=== PATIENT | male | born 1995 | race Caucasian/White ===

== ENCOUNTER → 2019-04-25 07:09 | Outpatient (CLI) | payer BC, SELFPAY ==
--- NOTE | 2019-04-25 07:45 | MRI_ITS ---
STUDY: MRI BRAIN WITHOUT CONTRAST REASON FOR EXAM: Male, 23 years old. Epilepsy, Dalila 1, follow-up TECHNIQUE: Standardized multiplanar fat and water weighted pulse sequences were obtained. COMPARISON: 26 April 2018 FINDINGS: Appearance is stable since prior. There are no focal parenchymal lesions, acute infarct, mass effect or midline shift. Ventricular size is normal. There is mild asymmetric cerebellar tonsillar ectopia. The right tonsil is located 5 mm below the foramen magnum. Left tonsil is located 4 mm below the foramen magnum. Right tonsil is triangularly shaped, right is rounded and normal. Prepontine cistern is mildly flattened. There is near normal ventral flow of CSF anterior to the benjamin, medulla and cervical spinal cord. There is diminished flow in the posterior retroareolar medullary cistern. However, there is no crowding in the foramen magnum. There is mild descent of the frontal lobe with diminished distance to the optic nerves. MRI/Brain without Contrast IMPRESSION: 1. No change since prior. 2. Bilateral cerebellar tonsillar ectopia. This can be seen with borderline Chiari cases versus related to intracranial hypertension and/or dural venous sinus thrombosis. Ophthalmology referral and dedicated imaging or advised. Electronically Signed: Vivi Au, at 17:33 EST Tel , Service support ,
== END ==
PROVIDERS: PCP Internal Medicine; Referring Provider Psychiatry & Neurology Neurology; Visit Provider Psychiatry & Neurology Neurology
DX: G40.309 Generalized idiopathic epilepsy and epileptic syndromes, not intractable, without status epilepticus (principal); G40.B09 Juvenile myoclonic epilepsy, not intractable, without status epilepticus; G93.5 Compression of brain
CPT/HCPCS: 70551

== ENCOUNTER → 2020-09-02 06:06 | Outpatient (CLI) | payer BC, SELFPAY ==
[2020-09-02 06:22] LABS: Hematocrit 49.3 % (40-54); Hemoglobin 16.7 g/dL (13.0-16.5); Mean Corp Hgb Conc 33.9 g/dL (32-36); Mean Corpuscular Hgb 28.3 pg (27.0-32.0); Mean Corpuscular Volume 83.4 fL (80-94); Mean Platelet Vol. 9.4 fl (6.2-12.0); Platelet Count 231 K/mm3 (150-450); RBC Distribution Width CV 11.9 % (11.6-14.6); RBC Distribution Width SD 35.5 fl (35.1-43.9); Red Blood Count 5.91 M/mm3 (4.6-6.2); White Blood Count 6.9 K/mm3 (4.4-11.0)
[2020-09-02 06:44] LABS: ALB/GLOB Ratio 1.3 RATIO (0.9-2.4); AST(SGOT) 17 U/L (15-37); Alanine Aminotransfer ALT/SGPT 34 U/L (16-61); Albumin, Serum 4.1 g/dL (3.2-5.0); Alkaline Phosphatase 105 U/L (45-117); Anion Gap 6 (5-15); BUN 19 mg/dL (7-18); BUN/Creat Ratio 19.4 RATIO (10-20); Calcium,Total 9.1 mg/dL (8.5-10.1); Chloride 103 mmol/L (98-107); Creatinine, Serum 0.98 mg/dL (0.70-1.30); EST Glomerular Filtration Rate 100 mL/min (>60); Est Glom Filt Rate - Afr Amer 121 mL/min (>60); Globulin 3.1 g/dL (2.2-4.2); Glucose 112 mg/dL (74-106); Potassium 3.9 mmol/L (3.5-5.1); Protein, Total 7.2 g/dL (6.4-8.2); Sodium Level 139 mmol/L (136-145)
[2020-09-05 12:40] LABS: KEPPRA (LEVETIRACETAM) 12.5 ug/mL (10.0-40.0)
== END ==
LOC: LAB 06:08
PROVIDERS: PCP Internal Medicine; Referring Provider Nurse Practitioner Family; Visit Provider Nurse Practitioner Family
DX: G40.309 Generalized idiopathic epilepsy and epileptic syndromes, not intractable, without status epilepticus (principal)
CPT/HCPCS: 36415; 80053; 80177; 82140; 85027

== ENCOUNTER 2021-04-22 16:56 | Outpatient (CLI) | payer BC, SELFPAY ==
--- NOTE | 2021-04-22 16:57 | MRI_ITS ---
EXAM: MR HEAD WITHOUT AND WITH INTRAVENOUS CONTRAST CLINICAL INDICATION: Chiari I malformation monitoring TECHNIQUE: Multiplanar and multisequence MR images of the brain were obtained without and with intravenous contrast. This report was created using [employer] report [employer] technology. CONTRAST: IV 17ML DOTAREM COMPARISON: Apr 25 2019 7:50am FINDINGS: BRAIN AND EXTRA-AXIAL SPACES: Bilateral cerebellar tonsillar ectopia is unchanged and the findings are suggestive of Chiari One. No intra- or extra-axial hemorrhage. No evidence of acute infarct. No intracranial mass or mass effect. There is preservation of the liu/white matter interface. Ventricles are appropriate for age. No hydrocephalus. Basal cisterns are patent. SELLA: Unremarkable. Normal sella turcica, pituitary gland, infundibular stalk, optic chiasm and hypothalamus. AUDITORY SYSTEM: Unremarkable. The internal auditory canals are patent. BONES/JOINTS: Unremarkable. No discrete lytic or blastic abnormalities. SINUSES: Unremarkable as visualized. Clear. MASTOID AIR CELLS: Unremarkable as visualized. Clear. ORBITS: Unremarkable as visualized. Both globes, extraocular muscles, optic nerves and retrobulbar fat appear unremarkable. VASCULATURE: Unremarkable as visualized. Normal flow voids in the major intracranial circulation. MRI/Brain W/WO Contrast IMPRESSION: Bilateral cerebellar tonsillar ectopia is unchanged and the findings are suggestive of Chiari One. Electronically Signed: Malik Handley MD at 18:47 EST ,
== END 2021-04-22 23:59 | disposition home or self-care (01) ==
LOC: MRI 16:57
PROVIDERS: PCP Internal Medicine; Visit Provider Nurse Practitioner Family
DX: G93.5 Compression of brain (principal); G40.309 Generalized idiopathic epilepsy and epileptic syndromes, not intractable, without status epilepticus; G43.901 Migraine, unspecified, not intractable, with status migrainosus
CPT/HCPCS: 70553; A9575

== ENCOUNTER → 2023-04-29 | Outpatient (CLI) | payer BC, SELFPAY ==
--- OUTSIDE RECORDS SUMMARY | 2023-04-29 20:03 | XMS RPT_ITS | CCD ---
Author Name Unknown Address [address] [facility] [address] [place] [id number] Organization [facility] Care Team Providers Care Environmental Journalist Name Role Phone Carlos Lindo Admitting Unavailable Carlos Lindo Attending Unavailable Unavailable Primary Care Provider Unavaildot e Daniela Kay Primary Care Provider [phone] Daniela Kay Primary Care Provider Medications Current Medications Medication Drug Class(es) Dates Sig (Normalized) Sig (Original) levETIRAcetam 500 mg oral tablet (10 sources) Start: 06-14-2018 End: 04-05-2020 take 1 tablet by mouth twice daily levETIRAcetam 500 MG tablet Indications: Generalized epilepsy , 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 Other nervous system disorders (1 source) Chiari malformation type I; Translations: [Chiari malformation type I] Chronic Past or Other Problems Problem Classification Problem Date Documented Da te Episodic/Chronic Epilepsy; convulsions (4 sources) Seizure; Translations: [New onset seizure] Onset: 05-05-2018 11-07-2018 Episodic Results Test Name Value Interpretation Reference Range Facil ity Vital Signs Date Time Vital Sign Value Performing Clinician Jennifer brown 04-11-2019 07:55-0500 BMI (Body Mass Index) 27.15 kg/m2 Dwight Romero [facility] 04-11-2019 07:55-0500 Body weight 86.46 kg [facility] 04-11-2019 07:55-0500 BP Diastolic 62 mm[Hg] [facility] 04-11-2019 07:55-0500 BP Systolic 118 mm[Hg] [facility] 04-11-2019 07:55-0500 Height 178.4 cm [facility] 04-11-2019 07:55-0500 Pulse (Heart Rate) 60 /min [facility] 04-11-2019 07:55-0500 Respiratory Rate 16 /min [facility] 10-11-2018 08:35-0400 BMI (Body Mass Index) 28.52 kg/m2 [facility] 10-11-2018 08:35-0400 Body weight 90.81 kg [facility] 10-11-2018 08:35-0400 BP Diastolic 70 mm[Hg] [facility] 10-11-2018 08:35-0400 BP Systolic 106 mm[Hg] [facility] 10-11-2018 08:35-0400 Height 178.4 cm [facility] 10-11-2018 08:35-0400 Pulse (Heart Rate) 80 /min [facility] 10-11-2018 08:35-0400 Respiratory Rate 20 /min [facility] 07-12-2018 08:11-0400 BMI (Body Mass Index) 28.52 kg/m2 [facility] 07-12-2018 08:11-0400 BP Diastolic 62 mm[Hg] [facility] 07-12-2018 08:11-0400 BP Systolic 106 mm[Hg] [facility] 07-12-2018 08:11-0400 Height 178.4 cm [facility] 07-12-2018 08:11-0400 Pulse (Heart Rate) 68 /min [facility] 07-12-2018 08:11-0400 Respiratory Rate 16 /min [facility] 07-12-2018 08:11-0400 Weight 90.81 kg [facility] 05-31-2018 08:50-0400 BMI (Body Mass Index) 28.29 kg/m2 [facility] 05-31-2018 08:50-0400 BP Diastolic 92 mm[Hg] [facility] 05-31-2018 08:50-0400 BP Systolic 120 mm[Hg] Dwight [facility] 05-31-2018 08:50-0400 Height 178.4 cm [facility] 05-31-2018 08:50-0400 Pulse (Heart Rate) 80 /min [facility] 05-31-2018 08:50-0400 Respiratory Rate 16 /min [facility] 05-31-2018 08:50-0400 Weight 90.08 kg [facility] Encounters Encounter Date Encounter Type Care Provider Facility Start: 04-11-2020 End: 04-11-2020 Orders Only Idalia Joleen Jerry Work Phone: [facility] Start: 04-11-2019 End: 04-11-2019 Office outpatient visit 15 minutes Dwight Romero Work Phone: [facility] Neurology Procedures Date Procedure Procedure Detail Performing Clinician Start: 06-14-2018 Electroencephalogram Dwight Romero Work Phone: Start: 06-14-2018 Electroencephalogram extnd mntr >1 hr Dwight Romero Work Phone: Plan of Treatment Date Care Activity Detail Author Start: 04-16-2020 End: 04-16-2020 Office Visit 04/16/2020 Office Visit Neurology Dwight Romero, DO [address] [place] [address] [phone] [facility] Neurology Start: 04-11-2019 End: 04-11-2020 MRI of brain and brain stem MRI BRAIN WITHOUT CONTRAST Imaging Routine Nonintractable epilepsy without status epilepticus, unspecified epilepsy type 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 Expected: 04/11/2019, Expires: 04/11/2020 [facility] Payers Date Payer Category Payer Unknown [employer] O PPO POS xxxxxxxxxxxx 2018-Present xxxxxxxxxxxx [id number] 2016 Unknown RJ BCBS OUT OF STATE [facility] [id number] 2016-Present [id number] 1996 Unknown [id number] Unknown [id number] Social History Date Type Detail Facility Tobacco smoking status AKIS Unknown if ev er smoked [facility] Sex Assigned At Not on file [facility] Start: 05-31-2018 End: 04-11-2019 Tobacco smoking status NHIS Never smoker [facility] Start: 05-31-2018 History SDOH Alcohol Frequency 4 [facility] Start: 05-31-2018 History SDOH [facility] Start: 05-31-[address] [facility] Start: 10-11-2018 Alcohol intake Yes [facility] Start: 04-11-2019 Alcohol intake Current drinke r of alcohol (finding) [facility] Summary Purpose Family History No Family History Records FoundNo Family History Records FoundNo Family History Records FoundNo Family History Records Found Advance Directives No Advanced Directives Records FoundNo Advanced Directives Records FoundNo Advanced Directives Records FoundNo Advanced Directives Records Found Reason for Referral Status Reason Specialty Diagnoses / Procedures Referred By Contact Referred To Contact New Request Neurology Diagnoses New onset seizure Dwight Romero DO [address] [place] [address] Dwight Romero DO [address] [place] [address] Status Reason Specialty Diagnoses / Procedures Referred By Contact Referred To Contact New Request Diagnoses Seizure Procedures EEG EXTENDED >1 HOUR Dwight Romero DO [address] [place] [address] Status Reason Specialty Diagnoses / Procedures Referred By Contact Referred To Contact Internal Provider - External Schedule Diagnoses Nonintractable epilepsy without status epilepticus, unspecified epilepsy type 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 Procedures MRI BRAIN WITHOUT CONTRAST VA MRI BRAIN Dwight Romero, [address] [place] [address] Assessments Diagnosis New onset seizure- Primary Other convulsions Diagnosis Seizure- Primary Other convulsions Diagnosis Generalized epilepsy- Primary Unspecified epilepsy without mention of intractable epilepsy Diagnosis Generalized epilepsy- Primary Unspecified epilepsy without mention of intractable epilepsy 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 Diagnosis Generalized epilepsy Unspecified epilepsy without mention of intractable epilepsy 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 Diagnosis Generalized epilepsy Unspecified epilepsy without mention of intractable epilepsy 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 right handed male who presents with Seizure. He states that on April 26 early in the morning he had a seizure. He states that the night beforehe worked 4pm -12 midnight. He then slept until 245 am. He slept about 2 hrs total. He woke up and was cleaning the dog cage. He grabbed his girlfriends phone to turn on the flashlight and then he states that his hands started shaking. He doesn't remember what happened after that. Per his girlfriend his arms tensed out and hands started shaking. He then fell forward into the cage and he fell forward into a ball and his whole body started shaking. He appeared out of it and was not able to communicate during this episode. He shook for about 30 seconds. He was out of it for about 5 minutes after the episode. He did not have any urinary incontinence with the episode. He did bite his tounge with the seizure. They called EMS and they sent him to [facility] and they sent him to [facility]. He did have an EEG done at [place] and they told him it was normal. He had an MRI brain that was reportedly unremarkable. CT head was unremarkable. He did see Neurology at [facility]. He started him on Topamax and it made his headaches worse. He gets migraines once a month. They are on the top left of his head and he will lay down and then feels better. He does have somenausea and vomiting. He doesn't have photophobia or phonophobia. He is not driving at this time. Gerardo never had a seizure prior to April 2018. He has not had any seizures since that time. He statesthat his grandmother on his dads side had seizures. He denies staring spells. Once or twice a week he will have an involuntary jerk of his right hand. He doesn't lose awareness during this. Review of Systems: Comments Neurological As above General/constitutional No fevers, weight change, chills, fatigue, night sweats Skin No rash, edema, bruising HEENT No diplopia, dysphagia, dizziness, tinnitus, hearing loss Cardiovascular No dyspnea or chest pain, palpitaitons, peripheral edema Respiratory No SOB, wheezing, rhonchi, cough or rales Gastrointestinal No loss of bowel control, constipation, diarrhea, abdominal pain, nausea or vomiting Genitourinary No loss of bladder control, no sexual dysfunction, hematuria, dysuria Musculoskeletal No myalgias, weakness, atrophy, joint pain, neck pain or back pain Psychiatric No depression, anxeity, hallucinations, delusions Endocrine No changes to hair or nails, abnormal sweating, hot flashess, excessive thirst, polyuria Hematologic No easy bruising, bleeding, swollen lymph nodes Unless directly addressed in ROS or in assessment and plan, patient was instructed to followup positive ROS findings with PCP. Past Medical History: Diagnosis Date Epilepsy Past Surgical History: Procedure Laterality Date TONSILLECTOMY Family History Problem Relation Age of Onset Hypertension Maternal Grandmother Myocardial Infarction Maternal Grandfather Hypertension Maternal Grandfather Lipid Disorder Maternal Grandfather Diabetes Maternal Grandfather Depression Maternal Grandfather Myocardial Infarction Paternal Grandmother Hypertension Paternal Grandmother Thyroid Disease Paternal Grandmother Myocardial Infarction Paternal Grandfather Hypertension Paternal Grandfather Social History Socioeconomic History Marital status: Single Spouse name: Not on file Number of children: Not on file Years of education: Not on file Highest education level: Not on file Occupational History Not on file Social Needs Financial resource strain: Not on file Food insecurity: Worry: Not on file Inability: Not on file Transportation needs: Medical: Not on file Non-medical: Not on file Tobacco Use Smoking status: Never Smoker Smokeless tobacco: Never Used Substance and Sexual Activity Alcohol use: Yes Alcohol/week: 1.2 oz Types: 2 Cans of beer per week Frequency: 2-3 times a week Drinks per session: 1 or 2 Comment: wkly Drug use: Never Sexual activity: Not on file Lifestyle Physical activity: Days per week: Not on file Minutes per session: Not on file Stress: Not on file Relationships Social connections: Talks on phone: Not on file Gets together: Not on file Attends synagogue service: Not on file Active member of club or organization: Not on file Attends meetings of clubs or organizations: Not on file Relationship status: Not on file Intimate partner violence: Fear of current or ex partner: Not on file Emotionally abused: Not on file Physically abused: Not on file Forced sexual activity: Not on file Other Topics Concern Not on file Social History Narrative Not on file No Known Allergies No current outpatient medications on file. No current facility-administered medications for this visit. Physical Exam: Blood pressure (!) 120/92, pulse 80, resp. rate 16, height 1.784 m (5' 10.25 ), weight 90.1 kg (198lb 9.6 oz). Body mass index is 28.29 kg/m . General: in no acute distress. HENT: Normal oropharynx and mucosa. Normal external appearance of ears and nose. Neck: Supple, no pain or tenderness CV: RRR without murmur. No peripheral edema. Pulmonary: Clear to auscultation bilaterally. Normal respiratory effort. Abdomen: positive bowel sounds, soft, non-tender. Normal liver and spleen size. Ext: No cyanosis, edema, or deformity Skin: No rash. Normal palpation of skin. Musculoskeletal: full range of motion; no joint tenderness. Normal digits and nails by inspection. No clubbing. Neurological Examination Mental status: awake and alert; oriented to person, place, year, and month; good attention. Normal mood and affect. Normal insight into condition. Speech/language: fluent; comprehension intact; object naming intact; repetition intact Cranial nerves: CN II: Visual pulido intact to confrontation. PERRL. Normal conjunctivae and lids. Fundoscopic examwithin normal limits. No evidence of hemorrhage or papilledema. Optic nerve within normal limits. security professional III, IV and : extraocular movements intact. No nystagmus. CN V: Facial sensation is intact to light touch. CN VII: Facial strength normal with symmetric movement. CN VIII: Hearing is grossly intact. CN IX and X: Soft palate elevates symmetrically in the midline CN XI: Shoulder shrug and sternocleidomastoid strength (R/L) 5/5 CN XII: Tongue is midline with normal movement; no fasciculations. Motor: Normal bulk and tone. No pronator drift. SA EE EF WE WF DI HF KE KF DF PF Right 5 5 5 5 5 5 5 5 5 5 5 Left 5 5 5 5 5 5 5 5 5 5 5 Reflexes: Right Left Comments Biceps 2 2 Triceps 2 2 Brachioradialis 2 2 Patellar 2 2 Achilles 2 2 Jaw jerk Lara Babinski Down Down Coordination: [id number]-ht-[id number] intact bilaterally. Avzn-qx-yumw intact bilaterally. Rapid alternatingmovements are normal. Sensation: Comments Light touch Intact throughout Pin prick Intact throughout Temperature Intact throughout Vibration Intact throughout Proprioception Intact throughout Gait: Normal stride length, arm swing, and base width. Able to toe, heel, and tandem walk. NegativeRomberg. Extensive time was taken to review all available records received with the new patient referral, including MRI scans and other diagnostic imaging. In addition, extensive time was taken to query other[employer] databases, which include [employer], [employer], [employer], [employer], and radiology PACS system. Pertinent labs from the referring provider were reviewed as well. Assessment and Plan: 1. Seizure - EEG EXTENDED >1 HOUR; Future At this time Mr. De La Garza is doing well overall. His event was consistent with a seizure. He has not had any recurrent seizure since that time. This was likely a provoked seizure due to lack of sleep. He does describe a few episodes of involuntary jerking in his right hand from time to time. This maybe due to myoclonus. We will do a prolonged 1 hour EEG to look for any evidence of epileptiform abnormalities which could be leading to his symptoms. Specifically we will be looking for any generalized discharges consistent with juvenile myoclonic epilepsy. Given that he has only had 1 seizure and it was likely a provoked seizure antiepileptic medication is not indicated at this time. The patientwas counseled that he is not able to drive until he is seizure-free for 6 months. 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 I did instruct him that he is not allowed to be on a ladder at this time. He would need some sort of harness in place if he is to be on a ladder. He understands this and will discuss it with his boss. He was encouraged to get a full night sleep every night. He is not interested in any medications for his headaches at this time. He will see us back in the outpatient neurology clinic in 6 weeks. He will call us immediately should have any significant worsening of symptoms or should any new symptoms arise. Greater than 51% of this visit was spent in zvka-yw-[id number] time counseling the patient on his condition. Seizureprecautions were discussed with the patient including but not limited to avoiding baths, swimming alone, climbing ladders, roofs, operating heavy machinery. The patient was instructed not to drive. We will obtain the MRI brain and EEG report from [facility]. documented in this encounter* Dwight Romero DO - 06/14/2018 4:15 PM EDT EEG showed generalized spike wave discharges consistent with epilepsy. Will start Keppra 500 mg BID. Side effects of Keppra were reviewed with the patient which include but are not limited to increased blood pressure, behavioral problems, aggression, anxeity, apathy, depersonalization, emotional lability, irritability, neurosis, headache, drowsiness, psychosis, fatigue, vomiting, infections, weakness, nasopharyngitis, insomnia, vertigo, falling, ataxia, nervousness, abnormal gait, paranoia, amnesia, confusion, abdominal pain, diarrhea, nausea, anorexia, constipation, gastroenteritis, eosinophilia, bruising, leukopenia, neutropenia, neck pain, arthralgia, joint pain, conjunctivitis, diplopia, otalgia, cough, pharyngitis, rhinitis, sinusitis, agranulocytosis, anemia, dyskinesia, dress syndrome, eczema, erythema multiforme, hepatic failure, hepatitis, hyperkinesia, hyponatremia, memory impa irment, myalgia, myasthenia, pancreatitis, pancytopenia, panic attacks, personality disorders, Roddy Chester syndrome, suicidal tendencies, depression, thrombocytopenia, toxic epidermal necrolysis documented in this encounter* Dwight Romero DO - 07/12/2018 8:20 AM EDT [facility] NOTE Chief complaint: Generalized Epilepsy History of present illness: Ari De La Garza is a 22 y.o. right handed male who presents in followup with Generalized epilepsy. In April 2018, early in the morning he had a seizure. The night before heworked 4pm -12 midnight. He then slept until 245 am. He slept about 2 hrs total. He woke up and wascleaning the dog cage. He grabbed his girlfriends phone to turn on the flashlight and then he states that his hands started shaking. He doesn't remember what happened after that. His girlfriend witnessed his arms tensed out and hands shaking. He then fell forward into the cage and his whole body started shaking. He appeared out of it and was not able to communicate during this episode. He shook for about 30 seconds. He was out of it for about 5 minutes after the episode. He did not have any urinary incontinence with the episode. He did bite his tounge with the seizure. They called EMS and they sent him to [facility] and they sent him to [facility]. [facility] and they told him it was normal. MRI brain was reportedly unremarkable. CThead was unremarkable. He did see Neurology at [facility]. He started him on Topamax andit made his headaches worse. He gets migraines once a month. They are on the top left of his head and he will lay down and then feels better. He does have some nausea and vomiting. He doesn't have photophobia or phonophobia. He is not driving at this time. He has never had a seizure prior to April 2018. He states that his grandmother on his dads side had seizures. He denies staring spells. Occasionally he had involuntary jerks of his right hand in the past. He doesn't lose awareness during this. 1 hr prolonged EEG showed generalized spike and polyspike and wave activity and possibe sharp waves at F4 intermittently. He is on Keppra 500 mg BID at this time. He has not had any seizures since he was last seen. He has not had any myoclonic jerks since he was last seen. He has been tolerating the Keppra well. Review of Systems: Comments Neurological As above General/constitutional No fevers, weight change, chills, fatigue, night sweats Skin No rash, edema, bruising HEENT No diplopia, dysphagia, dizziness, tinnitus, hearing loss Cardiovascular No dyspnea or chest pain, palpitaitons, peripheral edema Respiratory No SOB, wheezing, rhonchi, cough or rales Gastrointestinal No loss of bowel control, constipation, diarrhea, abdominal pain, nausea or vomiting Genitourinary No loss of bladder control, no sexual dysfunction, hematuria, dysuria Musculoskeletal No myalgias, weakness, atrophy, joint pain, neck pain or back pain Psychiatric No depression, anxeity, hallucinations, delusions Endocrine No changes to hair or nails, abnormal sweating, hot flashess, excessive thirst, polyuria Hematologic No easy bruising, bleeding, swollen lymph nodes Unless directly addressed in ROS or in assessment and plan, patient was instructed to followup positive ROS findings with PCP. Past Medical History: Diagnosis Date Epilepsy Past Surgical History: Procedure Laterality Date TONSILLECTOMY Family History Problem Relation Age of Onset Hypertension Maternal Grandmother Myocardial Infarction Maternal Grandfather Hypertension Maternal Grandfather Lipid Disorder Maternal Grandfather Diabetes Maternal Grandfather Depression Maternal Grandfather Myocardial Infarction Paternal Grandmother Hypertension Paternal Grandmother Thyroid Disease Paternal Grandmother Myocardial Infarction Paternal Grandfather Hypertension Paternal Grandfather Social History Socioeconomic History Marital status: Spouse name: Not on file Number of children: Not on file Years of education: Not on file Highest education level: Not on file Occupational History Not on file Social Needs Financial resource strain: Not on file Food insecurity: Worry: Not on file Inability: Not on file Transportation needs: Medical: Not on file Non-medical: Not on file Tobacco Use Smoking status: Never Smoker Smokeless tobacco: Never Used Substance and Sexual Activity Alcohol use: Yes Alcohol/week: 2.0 standard drinks Types: 2 Cans of beer per week Frequency: 2-3 times a week Drinks per session: 1 or 2 Comment: wkly Drug use: Never Sexual activity: Not on file Lifestyle Physical activity: Days per week: Not on file Minutes per session: Not on file Stress: Not on file Relationships Social connections: Talks on phone: Not on file Gets together: Not on file Attends synagogue service: Not on file Active member of club or organization: Not on file Attends meetings of clubs or organizations: Not on file Relationship status: Not on file Intimate partner violence: Fear of current or ex partner: Not on file Emotionally abused: Not on file Physically abused: Not on file Forced sexual activity: Not on file Other Topics Concern Not on file Social History Narrative Not on file No Known Allergies Current Outpatient Medications Medication Sig Dispense Refill levetiracetam 500 MG Tab tablet Take 1 tablet by mouth 2 times daily. 60 tablet 0 No current facility-administered medications for this visit. Physical Exam: Vitals: 07/12/18 0811 BP: 106/62 Pulse: 68 Resp: 16 Weight: 90.8 kg (200 lb 3.2 oz) Height: 1.784 m (5' 10.25 ) General: In no acute distress. HENT: Normal oropharynx and mucosa. Normal external appearance of ears and nose. Neck: Supple, no pain or tenderness CV: RRR without murmur. No peripheral edema. Pulmonary: Clear to auscultation bilaterally. Normal respiratory effort. Abdomen: positive bowel sounds, soft, non-tender. Normal liver and spleen size. Ext: No cyanosis, edema, or deformity Skin: No rash. Normal palpation of skin. Musculoskeletal: full range of motion; no joint tenderness. Normal digits and nails by inspection. No clubbing. Neurological Examination Mental status: awake and alert; oriented to person, place, year, and month; good attention. Normal mood and affect. Normal insight into condition. Speech/language: fluent; comprehension intact; object naming intact; repetition intact Cranial nerves: CN II: Visual pulido intact to confrontation. PERRL. Normal conjunctivae and lids. Fundoscopic examwithin normal limits. No evidence of hemorrhage or papilledema. Optic nerve within normal limits. security professional III, IV and : extraocular movements intact. No nystagmus. CN V: Facial sensation is intact to light touch. CN VII: Facial strength normal with symmetric movement. CN VIII: Hearing is grossly intact. CN IX and X: Soft palate elevates symmetrically in the midline CN XI: Shoulder shrug and sternocleidomastoid strength (R/L) 5/5 CN XII: Tongue is midline with normal movement; no fasciculations. Motor: Normal bulk and tone. No pronator drift. SA EE EF WE WF DI HF KE KF DF PF Right 5 5 5 5 5 5 5 5 5 5 5 Left 5 5 5 5 5 5 5 5 5 5 5 Reflexes: Right Left Comments Biceps 2 2 Triceps 2 2 Brachioradialis 2 2 Patellar 2 2 Achilles 2 2 Jaw jerk Lara Babinski Down Down Coordination: Yampea-ak-trlc intact bilaterally. Fliv-cb-xmvr intact bilaterally. Rapid alternatingmovements are normal. Sensation: Comments Light touch Intact throughout Pin prick Intact throughout Temperature Intact throughout Vibration Intact throughout Proprioception Intact throughout Gait: Normal stride length, arm swing, and base width. Able to toe, heel, and tandem walk. NegativeRomberg. All pertinent labs and images were reviewed with the patient. Assessment and Plan: 1. Generalized epilepsy - KEPPRA (LEVITIRACETAM); Future - levetiracetam 500 MG Tab tablet; Take 1 tablet by mouth 2 times daily. Dispense: 60 tablet; Refill: 0 2. 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 Dispense: 60 tablet; Refill: 0 At this time Mr. De La Garza is doing well overall. His Generalized epilepsy remains well controlled. 1 hr prolonged EEG was consistent with generalized epilepsy. It is likely Juvenile Myoclonic Epilepsy.He will continue Keppra 500 mg BID at this time. Side effects of Keppra were reviewed with the patient which include but are not limited to increased blood pressure, behavioral problems, aggression, anxeity, apathy, depersonalization, emotional lability, irritability, neurosis, headache, drowsiness, psychosis, fatigue, vomiting, infections, weakness, nasopharyngitis, insomnia, vertigo, falling, ataxia, nervousness, abnormal gait, paranoia, amnesia, confusion, abdominal pain, diarrhea, nausea, anorexia, constipation, gastroenteritis, eosinophilia, bruising, leukopenia, neutropenia, neck pain, arthralgia, joint pain, conjunctivitis, diplopia, otalgia, cough, pharyngitis, rhinitis, sinusitis, a granulocytosis, anemia, dyskinesia, dress syndrome, eczema, erythema multiforme, hepatic failure, hepatitis, hyperkinesia, hyponatremia, memory impairment, myalgia, myasthenia, pancreatitis, pancytopenia, panic attacks, personality disorders, Roddy Chester syndrome, suicidal tendencies, depression, thrombocytopenia, toxic epidermal necrolysis. We will check a Keppra level at this time. 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 The patient was made aware that all antiepileptic drugs carry a risk of potentially increasing suicidality. Patient was encouraged to let us know immediately should they have any suicidal thoughts or worsening depression while on the medications as this would prompt a likely change in treatment. The patient was made aware of the phenomenon known as SUDEP and was encouraged to remain compliant with their medications as this is thought to lower the SUDEP risk. THe patient understood and accepted the SUDEP risk in epilepsy. Seizure precautions were discussed with the patient including but not limited to avoiding baths, swimming alone, climbing ladders, roofs, operating heavy machinery. The patient was instructed not todrive until he is 6 months seizure free. He understand this. documented in this encounter* Dwight Romero DO - 10/11/2018 8:40 AM EDT [facility] NOTE Chief complaint: Epilepsy History of present illness: Ari De La Garza is a 23 y.o. right handed male who presents with in followup with Generalized epilepsy. In April 2018, early in the morning he had a seizure. The night before he worked 4pm -12 midnight. He then slept until 245 am. He woke up and was cleaning the dog cage.He grabbed his girlfriends phone to turn on the flashlight and then he states that his hands started shaking. He doesn't remember what happened after that. His girlfriend witnessed his arms tensed out and hands shaking. He then fell forward into the cage and his whole body started shaking. He appeared out of it and was not able to communicate during this episode. He shook for about 30 seconds. Hewas out of it for about 5 minutes after the episode. He did not have any urinary incontinence with the episode. He did bite his tounge with the seizure. They called EMS and they sent him to [facility] and they sent him to [facility]. He did have an EEG done at [facility] and they told him it was normal. MRI brain was reportedly unremarkable. CT head was unremarkable. He did see Neurology at [facility]. He started him on Topamax and it made his headaches worse. He gets migraines once a month. They are on the top left of his head and he will lay down andthen feels better. He does have some nausea and vomiting. He doesn't have photophobia or phonophobia. He is not driving at this time. He has never had a seizure prior to April 2018. He states that his grandmother on his dads side had seizures. He denies staring spells. Occasionally he had involuntary jerks of his right hand in the past. He doesn't lose awareness during this. 1 hr prolonged EEG showed generalized spike and polyspike and wave activity and possibe sharp waves at F4 intermittently.He is on Keppra 500 mg BID at this time. He has not had any seizures since he was last seen. He hasnot had any myoclonic jerks since he was last seen. He has been tolerating the Keppra well. CT headshowed borderline mild enlarged right temporal horn and low lying cerebellar tonsils. He is doing well since he was last seen. He has not had any seizures or morning myoclonic jerks. He is toleratingthe Keppra well. He is not having any absence spells. Review of Systems: Comments Neurological As above General/constitutional No fevers, weight change, chills, fatigue, night sweats Skin No rash, edema, bruising HEENT No diplopia, dysphagia, dizziness, tinnitus, hearing loss Cardiovascular No dyspnea or chest pain, palpitaitons, peripheral edema Respiratory No SOB, wheezing, rhonchi, cough or rales Gastrointestinal No loss of bowel control, constipation, diarrhea, abdominal pain, nausea or vomiting Genitourinary No loss of bladder control, no sexual dysfunction, hematuria, dysuria Musculoskeletal No myalgias, weakness, atrophy, joint pain, neck pain or back pain Psychiatric No depression, anxeity, hallucinations, delusions Endocrine No changes to hair or nails, abnormal sweating, hot flashess, excessive thirst, polyuria Hematologic No easy bruising, bleeding, swollen lymph nodes Unless directly addressed in ROS or in assessment and plan, patient was instructed to followup positive ROS findings with PCP. Past Medical History: Diagnosis Date Epilepsy Past Surgical History: Procedure Laterality Date TONSILLECTOMY Family History Problem Relation Age of Onset Hypertension Maternal Grandmother Myocardial Infarction Maternal Grandfather Hypertension Maternal Grandfather Lipid Disorder Maternal Grandfather Diabetes Maternal Grandfather Depression Maternal Grandfather Myocardial Infarction Paternal Grandmother Hypertension Paternal Grandmother Thyroid Disease Paternal Grandmother Myocardial Infarction Paternal Grandfather Hypertension Paternal Grandfather Social History Socioeconomic History Marital status: Spouse name: Not on file Number of children: Not on file Years of education: Not on file Highest education level: Not on file Occupational History Not on file Social Needs Financial resource strain: Not on file Food insecurity: Worry: Not on file Inability: Not on file Transportation needs: Medical: Not on file Non-medical: Not on file Tobacco Use Smoking status: Never Smoker Smokeless tobacco: Never Used Substance and Sexual Activity Alcohol use: Yes Alcohol/week: 2.0 standard drinks Types: 2 Cans of beer per week Frequency: 2-3 times a week Drinks per session: 1 or 2 Comment: wkly Drug use: Never Sexual activity: Not on file Lifestyle Physical activity: Days per week: Not on file Minutes per session: Not on file Stress: Not on file Relationships Social connections: Talks on phone: Not on file Gets together: Not on file Attends synagogue service: Not on file Active member of club or organization: Not on file Attends meetings of clubs or organizations: Not on file Relationship status: Not on file Intimate partner violence: Fear of current or ex partner: Not on file Emotionally abused: Not on file Physically abused: Not on file Forced sexual activity: Not on file Other Topics Concern Not on file Social History Narrative Not on file No Known Allergies Current Outpatient Medications Medication Sig Dispense Refill levetiracetam 500 MG Tab tablet Take 1 tablet by mouth 2 times daily. 180 tablet 0 No current facility-administered medications for this visit. Physical Exam: Vitals: 10/11/18 0835 BP: 106/70 Pulse: 80 Resp: 20 Weight: 90.8 kg (200 lb 3.2 oz) Height: 1.784 m (5' 10.25 ) General: In no acute distress. HENT: Normal oropharynx and mucosa. Normal external appearance of ears and nose. Neck: Supple, no pain or tenderness CV: RRR without murmur. No peripheral edema. Pulmonary: Clear to auscultation bilaterally. Normal respiratory effort. Abdomen: positive bowel sounds, soft, non-tender. Normal liver and spleen size. Ext: No cyanosis, edema, or deformity Skin: No rash. Normal palpation of skin. Musculoskeletal: full range of motion; no joint tenderness. Normal digits and nails by inspection. No clubbing. Neurological Examination Mental status: awake and alert; oriented to person, place, year, and month; good attention. Normal mood and affect. Normal insight into condition. Speech/language: fluent; comprehension intact; object naming intact; repetition intact Cranial nerves: CN II: Visual pulido intact to confrontation. PERRL. Normal conjunctivae and lids. security professional III, IV and : extraocular movements intact. No nystagmus. CN V: Facial sensation is intact to light touch. CN VII: Facial strength normal with symmetric movement. CN VIII: Hearing is grossly intact. CN IX and X: Soft palate elevates symmetrically in the midline CN XI: Shoulder shrug and sternocleidomastoid strength (R/L) 5/5 CN XII: Tongue is midline with normal movement; no fasciculations. Motor: Normal bulk and tone. No pronator drift. SA EE EF WE WF DI HF KE KF DF PF Right 5 5 5 5 5 5 5 5 5 5 5 Left 5 5 5 5 5 5 5 5 5 5 5 Reflexes: Right Left Comments Biceps 2 2 Triceps 2 2 Brachioradialis 2 2 Patellar 2 2 Achilles 2 2 Jaw jerk Lara Babinski Down Down Coordination: Vopwpk-uq-uqfx intact bilaterally. Kwof-se-sydk intact bilaterally. Rapid alternatingmovements are normal. Sensation: Comments Light touch Intact throughout Pin prick Intact throughout Temperature Intact throughout Vibration Intact throughout Proprioception Intact throughout Gait: Normal stride length, arm swing, and base width. Able to toe, heel, and tandem walk. NegativeRomberg. All pertinent labs and images are reviewed with the patient. Assessment and Plan: 1. Generalized epilepsy - levetiracetam 500 MG Tab tablet; Take 1 tablet by mouth 2 times daily. Dispense: 180 tablet; Refill: 1 2. 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 Dispense: 180 tablet; Refill: 1 At this time Mr. De La Garza is doing well overall. His Generalized epilepsy remains well controlled. 1 hr prolonged EEG was consistent with generalized epilepsy. It is likely Juvenile Myoclonic Epilepsy.He will continue Keppra 500 mg BID at this time. Side effects of Keppra were reviewed with the patient which include but are not limited to increased blood pressure, behavioral problems, aggression, anxeity, apathy, depersonalization, emotional lability, irritability, neurosis, headache, drowsiness, psychosis, fatigue, vomiting, infections, weakness, nasopharyngitis, insomnia, vertigo, falling, ataxia, nervousness, abnormal gait, paranoia, amnesia, confusion, abdominal pain, diarrhea, nausea, anorexia, constipation, gastroenteritis, eosinophilia, bruising, leukopenia, neutropenia, neck pain, arthralgia, joint pain, conjunctivitis, diplopia, otalgia, cough, pharyngitis, rhinitis, sinusitis, a granulocytosis, anemia, dyskinesia, dress syndrome, eczema, erythema multiforme, hepatic failure, hepatitis, hyperkinesia, hyponatremia, memory impairment, myalgia, myasthenia, pancreatitis, pancytopenia, panic attacks, personality disorders, Roddy Chester syndrome, suicidal tendencies, depression, thrombocytopenia, toxic epidermal necrolysis. We will check a Keppra level at this time. 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 The patient was made aware that all antiepileptic drugs carry a risk of potentially increasing suicidality. Patient was encouraged to let us know immediately should they have any suicidal thoughts or worsening depression while on the medications as this would prompt a likely change in treatment. The patient was made aware of the phenomenon known as SUDEP and was encouraged to remain compliant with their medications as this is thought to lower the SUDEP risk. THe patient understood and accepted the SUDEP risk in epilepsy. Seizure precautions were discussed with the patient including but not limited to avoiding baths, swimming alone, climbing ladders, roofs, operating heavy machinery. The patient was instructed not todrive until he is 6 months seizure free. He understand this. documented in this encounter* Dwight Romero DO - 04/11/2019 8:00 AM EST [facility] NOTE Chief complaint: Generalized epilepsy History of present illness: Ari De La Garza is a 23 y.o. right handed male who presents in followup with Generalized epilepsy. In April 2018, early in the morning he had a seizure. The night before heworked 4pm -12 midnight. He then slept until 245 am. He woke up and was cleaning the dog cage. He grabbed his girlfriends phone to turn on the flashlight and then he states that his hands started shaking. He doesn't remember what happened after that. His girlfriend witnessed his arms tensed out andhands shaking. He then fell forward into the cage and his whole body started shaking. He appeared out of it and was not able to communicate during this episode. He shook for about 30 seconds. He was out of it for about 5 minutes after the episode. He did not have any urinary incontinence with theepisode. He did bite his tounge with the seizure. They called EMS and they sent him to [facility] and they sent him to [facility]. EEG done at [facility] was normal. MRI brain was reportedly unremarkable. CT head was unremarkable. He did see Neurology at [facility]. He started him on Topamax and it made hisheadaches worse. He has never had a seizure prior to April 2018. He states that his grandmother on his dads side had seizures. He denies staring spells. Occasionally he had involuntary jerks of his right hand in the past. He doesn't lose awareness during this. 1 hr prolonged EEG showed generalized spike and polyspike and wave activity and possibe sharp waves at F4 intermittently. He is on Keppra 500 mg BID at this time. He has done well since he was last seen. He has not had any seizures. He isnot having any myoclonic jerks. He is not having any staring spells. He is doing well overall. Review of Systems: Comments Neurological As above General/constitutional No fevers, weight change, chills, fatigue, night sweats Skin No rash, edema, bruising HEENT No diplopia, dysphagia, dizziness, tinnitus, hearing loss Cardiovascular No dyspnea or chest pain, palpitaitons, peripheral edema Respiratory No SOB, wheezing, rhonchi, cough or rales Gastrointestinal No loss of bowel control, constipation, diarrhea, abdominal pain, nausea or vomiting Genitourinary No loss of bladder control, no sexual dysfunction, hematuria, dysuria Musculoskeletal No myalgias, weakness, atrophy, joint pain, neck pain or back pain Psychiatric No depression, anxeity, hallucinations, delusions Endocrine No changes to hair or nails, abnormal sweating, hot flashess, excessive thirst, polyuria Hematologic No easy bruising, bleeding, swollen lymph nodes Unless directly addressed in ROS or in assessment and plan, patient was instructed to followup positive ROS findings with PCP. Past Medical History: Diagnosis Date Epilepsy Past Surgical History: Procedure Laterality Date TONSILLECTOMY Family History Problem Relation Age of Onset Hypertension Maternal Grandmother Myocardial Infarction Maternal Grandfather Hypertension Maternal Grandfather Lipid Disorder Maternal Grandfather Diabetes Maternal Grandfather Depression Maternal Grandfather Myocardial Infarction Paternal Grandmother Hypertension Paternal Grandmother Thyroid Disease Paternal Grandmother Myocardial Infarction Paternal Grandfather Hypertension Paternal Grandfather Social History Socioeconomic History Marital status: Spouse name: Not on file Number of children: Not on file Years of education: Not on file Highest education level: Not on file Occupational History Not on file Social Needs Financial resource strain: Not on file Food insecurity Worry: Not on file Inability: Not on file Transportation needs Medical: Not on file Non-medical: Not on file Tobacco Use Smoking status: Never Smoker Smokeless tobacco: Never Used Substance and Sexual Activity Alcohol use: Yes Alcohol/week: 2.0 standard drinks Types: 2 Cans of beer per week Frequency: 2-3 times a week Drinks per session: 1 or 2 Comment: wkly Drug use: Never Sexual activity: Not on file Lifestyle Physical activity Days per week: Not on file Minutes per session: Not on file Stress: Not on file Relationships Social connections Talks on phone: Not on file Gets together: Not on file Attends synagogue service: Not on file Active member of club or organization: Not on file Attends meetings of clubs or organizations: Not on file Relationship status: Not on file Intimate partner violence Fear of current or ex partner: Not on file Emotionally abused: Not on file Physically abused: Not on file Forced sexual activity: Not on file Other Topics Concern Not on file Social History Narrative Not on file No Known Allergies Current Outpatient Medications Medication Sig Dispense Refill levetiracetam 500 MG Tab tablet Take 1 tablet by mouth 2 times daily. 180 tablet 1 No current facility-administered medications for this visit. Physical Exam: Vitals: 04/11/19 0755 BP: 118/62 Pulse: 60 Resp: 16 Weight: 86.5 kg (190 lb 9.6 oz) Height: 1.784 m (5' 10.25 ) General: In no acute distress. HENT: Normal oropharynx and mucosa. Normal external appearance of ears and nose. Neck: Supple, no pain or tenderness CV: RRR without murmur. No peripheral edema. Ext: No cyanosis, edema, or deformity Skin: No rash. Normal palpation of skin. Neurological Examination Mental status: awake and alert; oriented to person, place, year, and month; good attention. Normal mood and affect. Normal insight into condition. Speech/language: fluent; comprehension intact; object naming intact; repetition intact Cranial nerves: CN II: Visual pulido intact to confrontation. PERRL. Normal conjunctivae and lids. security professional III, IV and : extraocular movements intact. No nystagmus. CN V: Facial sensation is intact to light touch. CN VII: Facial strength normal with symmetric movement. CN VIII: Hearing is grossly intact. CN IX and X: Soft palate elevates symmetrically in the midline CN XI: Shoulder shrug and sternocleidomastoid strength (R/L) 5/5 CN XII: Tongue is midline with normal movement; no fasciculations. Motor: Normal bulk and tone. No pronator drift. SA EE EF WE WF DI HF KE KF DF PF Right 5 5 5 5 5 5 5 5 5 5 5 Left 5 5 5 5 5 5 5 5 5 5 5 Reflexes: Right Left Comments Biceps 2 2 Triceps 2 2 Brachioradialis 2 2 Patellar 2 2 Achilles 2 2 Jaw jerk Lara Babinski Down Down Coordination: Edkzcu-eo-gjte intact bilaterally. Wxdm-hk-hvcg intact bilaterally. Rapid alternatingmovements are normal. Sensation: Comments Light touch Intact throughout Pin prick Intact throughout Temperature Intact throughout Vibration Intact throughout Proprioception Intact throughout Gait: Normal stride length, arm swing, and base width. Negative Romberg. All pertinent labs and images were reviewed with the patient. Assessment and Plan: 1. Generalized epilepsy - levETIRAcetam 500 MG tablet; Take 1 tablet by mouth 2 times daily. Dispense: 180 tablet; Refill: 3 - MRI BRAIN WITHOUT CONTRAST; Future 2. 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 Dispense: 180 tablet; Refill: 3 - MRI BRAIN WITHOUT CONTRAST; Future 3. Nonintractable epilepsy without status epilepticus, unspecified epilepsy type - MRI BRAIN WITHOUT CONTRAST; Future 4. Chiari malformation type I - MRI BRAIN WITHOUT CONTRAST; Future At this time Mr. De La Garza is doing well overall. His Generalized epilepsy remains well controlled. 1 hr prolonged EEG was consistent with generalized epilepsy. It is likely Juvenile Myoclonic Epilepsy.He will continue Keppra 500 mg BID at this time. Side effects of Keppra were reviewed with the patient which include but are not limited to increased blood pressure, behavioral problems, aggression, anxeity, apathy, depersonalization, emotional lability, irritability, neurosis, headache, drowsiness, psychosis, fatigue, vomiting, infections, weakness, nasopharyngitis, insomnia, vertigo, falling, ataxia, nervousness, abnormal gait, paranoia, amnesia, confusion, abdominal pain, diarrhea, nausea, anorexia, constipation, gastroenteritis, eosinophilia, bruising, leukopenia, neutropenia, neck pain, arthralgia, joint pain, conjunctivitis, diplopia, otalgia, cough, pharyngitis, rhinitis, sinusitis, a granulocytosis, anemia, dyskinesia, dress syndrome, eczema, erythema multiforme, hepatic failure, hepatitis, hyperkinesia, hyponatremia, memory impairment, myalgia, myasthenia, pancreatitis, pancytopenia, panic attacks, personality disorders, Roddy Chester syndrome, suicidal tendencies, depression, thrombocytopenia, toxic epidermal necrolysis. MRI brain showed a borderline chiari 1 malformation but was otherwise unremarkable. We will repeat this at this time to ensure that the chiari malformation has not worsened and will do a CINE phase MRI to evaluate CSF flow. The patient was made aware that all antiepileptic drugs carry a risk of pote ntially increasing suicidality. Patient was encouraged to let us know immediately should they have any suicidal thoughts or worsening depression while on the medications as this would prompt a likelychange in treatment. The patient was made aware of the phenomenon known as SUDEP and was encouragedto remain compliant with their medications as this is thought to lower the SUDEP risk. THe patient understood and accepted the SUDEP risk in epilepsy. Seizure precautions were discussed with the patient including but not limited to avoiding baths, swimming alone, climbing ladders, roofs, operating heavy machinery. The patient has been seizure free for almost a year and is doing well. documented in this encounter Additional Source Comments (unrecognized sect ion and content) No Status Records FoundNo Status Records FoundNo Status Records FoundNo Status Records Found INFORMATION SOURCE (unrecogn ized section and content) DATE CREATED AUTHOR AUTHOR'S ORGANIZ ATION 05/01/2018 [facility] DATE CREATED AUTHOR AUTHOR'S ORGANIZ ATION 10/06/2018 [facility] DATE CREATED AUTHOR AUTHOR'S ORGANIZ ATION 04/11/2019 [facility] Reason for Visit (unrecogniz ed section and content) Reason Comments Follow-up Seizure Reason Comments Other Reason Comments Follow-up Seizure Status Reason Specialty Diagnoses / Procedures Referred By Contact Referred To Contact New Request Diagnoses Seizure Procedures EEG EXTENDED >1 HOUR Dwight Romero DO [address] [place] [address] FOR RECORDS PERTAINING TO PATIENTS WHO ARE OR HAVE BEEN ENROLLED IN A CHEMICAL DEPENDENCY/SUBSTANCEABUSE PROGRAM, SOME INFORMATION MAY BE OMITTED. This clinical summary was aggregated from multiple sources. Caution should be exercised in using it in the provision of clinical care. This summary normalizes information from multiple sources, and as a consequence, information in this document may materially change the coding, format and clinical context of patient data. In addition, data may be omitted in some cases. CLINICAL DECISIONS SHOULD BE BASED ON THE PRIMARY CLINICAL RECORDS. [employer] [facility]. provides no warranty or guarantee of the accuracy or completeness of information in this document.
[2023-05-03 14:08] LABS: KEPPRA (LEVETIRACETAM) 4.7 ug/mL (10.0-40.0)
== END | disposition home or self-care (01) ==
LOC: MTLAB 15:20
PROVIDERS: PCP Internal Medicine; Referring Provider Psychiatry & Neurology Neurology; Visit Provider Psychiatry & Neurology Neurology
DX: G40.309 Generalized idiopathic epilepsy and epileptic syndromes, not intractable, without status epilepticus (principal)
CPT/HCPCS: 36415; 80177; 82140

== ENCOUNTER → 2024-05-25 | Outpatient (CLI) | payer BC, SELFPAY ==
[2024-05-29 13:07] LABS: KEPPRA (LEVETIRACETAM) 10.3 ug/mL (10.0-40.0)
== END | disposition home or self-care (01) ==
LOC: LAB 15:03
PROVIDERS: PCP Internal Medicine; Referring Provider Psychiatry & Neurology Neurology; Visit Provider Psychiatry & Neurology Neurology
DX: G40.309 Generalized idiopathic epilepsy and epileptic syndromes, not intractable, without status epilepticus (principal)
CPT/HCPCS: 36415; 80177; 82140

== ENCOUNTER 2024-06-29 21:52 | Emergency (ER) | payer BC, SELFPAY ==
[2024-06-29 21:53] VITALS: BP 133/81; PULSE 85; RESP 18; TEMP 36.4; O2SAT 100; BMI 29.0
[2024-06-29] MEDS: Tetracaine 0.5% Ophthalmic Bottle 1 DRP LEFT EYE (23:57)
--- NOTE | 2024-06-29 23:57 | EDS_ITS ---
HPI History of Present Illness Chief Complaint: Eye Problem Informant: patient and spouse/S.O. Narrative Narrative: Patient is a 28-year-old male with past medical history of epilepsy. He states that he was working cutting metal pipe the other day when it felt like a piece of metal went into his left eye. He states there was no pain or change in vision so he did not think much of this. However the next morning when he awoke he noticed that there was irritation redness and pain. He states that he does not wear contact lenses nor does he use glasses. He states he went to a other facility and they could not get the foreign object removed and recommended follow-up with an analytic programmer. Patient states he cannot get into see the analytic programmer for multiple days which concerned him and therefore he returns to the ER for repeat evaluation [facility] Medical History (Updated 06/30/24 @ 06:[address] Pete Curran, DO) Epilepsy Home Medications ?Medication ?Instructions ?Recorded ?Last Taken ?Type ubrogepant 100 mg tablet (Ubrelvy) 100 mg .Route .COMP VALERIANO #16 tabs 03/02/24 Unknown Rx levetiracetam 500 mg tablet 500 mg PO .COMPLEX #90 tab s 06/12/24 Unknown Rx ciprofloxacin HCl 0.3 % eye drops 2 drp LEFT EYE 4X/DA Y 7 days #10 mL 06/29/24 Unknown Rx oxycodone-acetaminophen 5 mg-325 1 tab PO Q6H PRN pain 3 days #12 06/29/24 Unknown Rx mg tablet (Endocet) tabs Allergy/AdvReac Type Severity Reaction Status Date / Time bee venom protein (honey bee) Allergy Severe Swelling Verified 06/29/24 21:52 Family History Grandfather Heart disease CVA (cerebral vascular accident) Surgical History Tonsillectomy planned Social History Smoking Status: Never smoker alcohol intake: current alcohol intake frequency: a few times a week Alcohol type: beer substance use type: does not use ROS ROS ED Constitutional Constitutional ED: Denies chills or fever(s) Eyes Eyes: Reports other Details: Positive left eye redness and increased tearing as well as pain ; Denies change in vision ENT ENT ED: Denies sore throat Cardiovascular Cardiovascular: Denies chest pain Respiratory/Chest Respiratory/Chest: Denies cough or dyspnea Gastrointestinal Gastrointestinal: Denies abdominal pain, diarrhea, nausea or vomiting Genitourinary Genitourinary ED: Denies dysuria Musculoskeletal Musculoskeletal: Denies myalgias Integumentary Denies rash Neurologic Neurologic: Denies headache(s) Hematologic/Lymphatic Hematologic/Lymphatic: Denies easy bleeding or easy bruising EXAM Physical Exam Const Vital Signs: 06/29/24 21:53 Temperature 97.6 F L Temperature Source Temporal Pulse Rate 85 Respiratory Rate 18 Blood Pressure 133/81 H Blood Pressure Mean 98 Pulse Ox 100 Oxygen Delivery Method Room Air Positive well nourished and well developed General Appearance ED: well developed HEENT HEENT Narrative: Normocephalic atraumatic Eyes PERRL and EOMs intact bilaterally Eyes Narrative: Pupils are equal reactive to light and accommodation and extraocular muscles are intact Upper lid was everted there is no retained foreign object However around the 4 to 5 o'clock position there is a retained foreign body over top of the iris Patient has complete resolution of pain with tetracaine Neck supple Resp normal respiratory effort and clear to auscultation bilaterally Cardio regular rate and regular rhythm Extremity normal to inspection Neuro oriented x3, CN's II-XII intact bilaterally, moves all extremities and no sensory deficits noted Sensorium / Orientation: alert Motor Exam: strength 5/5 throughout Psych mental status grossly normal Skin no rashes or lesions noted and no wounds MDM MDM MDM Narrative Medical decision making narrative: Patient arrived to the ER with stable vitals. He reported a potential eye foreign object that he sustained roughly 24 hours ago. Physical exam does show a foreign body over top the iris around the 4 to 5 o'clock position. As it has been 24 hours since the initial trauma there is high likelihood that the cornea has begun to grow over top of the piece of metal. I did attempt to remove the metal with a bur. However despite multiple attempts I could not get the complete foreign object out of the cornea. Secondary to the retained foreign object and corneal abrasion he will be placed on ciprofloxacin eyedrops to prevent infection and given Percocet for pain. He will be referred to ophthalmology for further evaluation. However at this time as he does not have findings to suggest globe rupture or secondary infection there is no need for further intervention and he is otherwise safe for discharge History & Record Review Discussion w/independent historian: Patient Discharge Plan Triage Chief Complaint: Eye Problem ED Provider: Pete Curran Dx/Rx/DC Orders Clinical Impression: Corneal abrasion, left, Foreign body of left eye, Epilepsy Instructions: ED Corneal Abrasion, ED RUST RING Prescriptions: New ciprofloxacin HCl 0.3 % drops 2 drp LEFT EYE 4X/DAY 7 Days Qty: 10 0RF oxycodone-acetaminophen [Endocet] 5-325 mg tablet 1 tab PO Q6H PRN (Reason: pain) 3 Days Qty: 12 0RF No Action Ubrelvy 100 mg tablet 100 mg .ROUTE .COMPLEX Qty: 16 11RF Rx Instructions: Take 1 tablet PO every 2 hours as needed for headache up to 2 tablets daily levetiracetam 500 mg tablet 500 mg PO .COMPLEX Qty: 90 8RF Rx Instructions: Take one tab PO in the morning and two tabs in the evening Primary Care Provider: Care Physician,No Primary Referrals: Alexis Tavarez MD [Med Staff - Active Staff] - (Corneal abrasion with retained foreign object) Care Physician,No Primary [Primary Care Provider] - Activity Restrictions/Additional Instructions: Please follow-up with ophthalmology to have the foreign object removed as we cannot get the piece of metal out in the ER with the bur. Take your antibiotics as directed to prevent secondary infection and return to the ER should you have any further concerns Print Language: Moroccan Disposition Disposition: Home, Self Care Discharge Date/Time: 06/30/24 00:11
[2024-06-30] MEDS: oxyCODONE 5 MG Tablet 10 MG PO (00:02)
[2024-06-30 00:03] VITALS: PULSE 80; RESP 18; O2SAT 97
== END 2024-06-30 00:11 | disposition home or self-care (01) ==
PROVIDERS: Emergency Provider Emergency Medicine; Visit Provider Emergency Medicine
DX: T15.82XA Foreign body in other and multiple parts of external eye, left eye, initial encounter (principal); G40.909 Epilepsy, unspecified, not intractable, without status epilepticus; S05.02XA Injury of conjunctiva and corneal abrasion without foreign body, left eye, initial encounter; W44.8XXA Other foreign body entering into or through a natural orifice, initial encounter; Y93.89 Activity, other specified; Y99.0 Civilian activity done for income or pay; Z79.899 Other long term (current) drug therapy
CPT/HCPCS: 99283